=== PATIENT | female | born 1975 | race Caucasian/White ===

== ENCOUNTER 2018-11-14 22:19 | Emergency (ER) | payer MEDICAID ==
[~2018-11-14] VITALS: Ht 142.2 cm; Wt 61.2 kg
[~2018-11-14 22:19] MED LIST: PREN1TAB49
[2018-11-14 22:25] VITALS: Ht 142.2 cm; Wt 61.2 kg
[2018-11-15] MEDS ORDERED: SOD CHLORIDE 0.9% 1,000 ML IV ONE (01:00)
[2018-11-15] MEDS ORDERED: ACETAMINOPHEN 325 MG TAB PO ONE (01:00)
[2018-11-15] MEDS ORDERED: ACET325T33 PO (02:11)
[2018-11-15] MEDS ORDERED: ONDA4TAB14 PO (02:11)
[2018-11-15] MEDS ORDERED: CEPH-443 PO (02:11)
[2018-11-15 02:30] VITALS: BP 108/65; PULSE 104; RESP 20
--- NOTE | 2018-11-15 02:31 | ERD ---
ER Documentation Chief Complaint Chief Complaint HAs & fever since Saturday, last Ibuprofen 2030PM HPI 42-year-old female presents for headache and fever times 6 days. The headache is noted to be diffuse. She describes the pain as 9 out of 10. She states that the onset of symptoms was gradual. Patient states that her fever has been subjective. She took Motrin at home with only mild relief. She states that she has nausea however denies vomiting or diarrhea. She also denies cough or runny nose. She was seen at [facility] 2 days ago and was noted that she had a viral syndrome. Patient denies any confusion. She denies chest pain or shortness of breath. ROS All systems reviewed and are negative except as per history of present illness. Medications Home Meds Active Scripts Ondansetron (Ondansetron Odt) 4 Mg Tab.rapdis, 4 MG PO Q6H PRN for NAUSEA AND/OR VOMITING, #15 TAB Prov:YANIRA MOSLEY 11/15/18 Cephalexin* (Keflex*) 500 Mg Capsule, 500 MG PO TID for bacterial infection for 5 Days, #15 CAP Prov:MOSLEYYANIRA 11/15/18 Acetaminophen* (Tylenol*) 325 Mg Tablet, 2 TAB PO Q6 PRN for FEVER GREATER THAN 100.6, #30 TAB Prov:MOSLEYYANIRA 11/15/18 Reported Medications Vits W-Ca,Fe,Fa(<1MG) () 1 Tab Tablet 12/13/10 Allergies Allergies: Coded Allergies: No Known Allergies (Verified Allergy, Unknown, 01/10/07) PMhx/Soc Medical and Surgical Hx: pt denies Medical Hx History of Surgery: Yes (Hysterectomy) Anesthesia Reaction: No Hx Neurological Disorder: No Hx Respiratory Disorders: No Hx Cardiac Disorders: No Hx Psychiatric Problems: No Hx Miscellaneous Medical Probl: No Hx Alcohol Use: No Hx Substance Use: No Hx Tobacco Use: No Smoking Status: Never smoker Physical Exam Vitals Vital Signs Date Temp Pulse Resp B/P (MAP) Pulse Ox O2 O2 Flow FiO2 Time Delivery Rate 11/15/18 98.6 104 20 108/65 99 Room Air 02:30 (79) 11/15/18 99.6 00:57 11/14/18 101.9 113 20 107/68 97 22:25 (81) Physical Exam Const: No acute distress Head: Atraumatic, no temporal area tenderness to palpation Eyes: Normal Conjunctiva, pupils equal, round, reactive to light bilaterally ENT: Normal External Ears, bilateral tympanic membrane intact without erythema or bulging noted, Nose and Mouth. No tonsillar swelling or exudate noted Neck: Full range of motion. No meningismus, no bruits noted Resp: Clear to auscultation bilaterally Cardio: Regular rate and rhythm, no murmurs, bilateral radial and dorsalis pedis pulses intact Skin: No petechiae or rashes Ext: No cyanosis, or edema, 5 out of 5 muscular bilateral upper and lower extremities Neur: Awake and alert, bilateral upper and lower extremity sensation intact Psych: Normal Mood and Affect Results 24 hrs Current Medications Medications Dose Sig/Yayo Start Time Status Last (Trade) Ordered Route PRN Stop Time Admin Dose Reason Admin 650 mg ONCE ONCE 11/15/18 DC 11/15/18 Acetaminophen PO 01:00 11/15/18 00:57 (Tylenol 01:01 Tab) Sodium 1,000 ml @ Q1H ONCE 11/15/18 DC 11/15/18 Chloride 1,000 mls/hr IV 01:00 11/15/18 00:55 01:59 Procedures/MDM Medical Decision Making: Differential diagnosis includes but not limited to primary headache, subarachnoid hemorrhage, meningitis, temporal arteritis, glaucoma, hypertension, cerebral ischemia, carotid or vertebral arterial dissection, brain tumor. Patient appeared well on physical examination, nontoxic appearing. Given patient's age and no temporal area tenderness to palpation, low suspicion for temporal arteritis. Patient has no vision changes and pupils are reactive bilaterally, low suspicion for glaucoma. There is also no focal neurologic deficits to suggest a brain tumor. Patient has normal sensation and muscle strength, low suspicion for cerebral ischemia. Given the severity of the headache and history of fever, there is some suggestion for meningitis. Discussed with patient that a lumbar puncture would be the only way to rule out meningitis. Patient was hesitant about getting a lumbar puncture. Shared decision making: Discussed with patient that if she did not want a lumbar puncture, we could treat with antibiotics empirically however IV antibiotics would be the best way to treat a bacterial meningitis. Patient states that she would like to try antibiotics. Strict return precautions discussed with patient. Patient did present to the ER with a fever of 101.9 and tachycardia 113 In the ER patient given IV fluids and Tylenol Symptoms improved with treatment. Patient's fever and tachycardia improved. Patient given prescription for Keflex, Tylenol, Zofran Patient advised to follow up with PCP in 1-2 days. Patient advised to return to ED for new or worsening symptoms. Patient stable on discharge from the ED. Disclaimer: Inadvertent spelling and grammatical errors are likely due to EHR/dictation software use and do not reflect on the overall quality of patient care. Also, please note that the electronic time recorded on this note does not necessarily reflect the actual time of the patient encounter. Departure Diagnosis: Primary Impression: Fever Additional Impression: Headache Condition: Fair Patient Instructions: Self-Care for Headaches, Fever Control (Adult) Referrals: [facility] YOU HAVE RECEIVED A MEDICAL SCREENING EXAM AND THE RESULTS INDICATE THAT YOU DO NOT HAVE A CONDITION THAT REQUIRES URGENT TREATMENT IN THE EMERGENCY DEPARTMENT. FURTHER EVALUATION AND TREATMENT OF YOUR CONDITION CAN WAIT UNTIL YOU ARE SEEN IN YOUR DOCTORS OFFICE WITHIN THE NEXT 1-2 DAYS. IT IS YOUR RESPONSIBILITY TO MAKE AN APPOINTMENT FOR FOLOW-UP CARE. IF YOU HAVE A PRIMARY DOCTOR --you should call your primary doctor and schedule an appointment IF YOU DO NOT HAVE A PRIMARY DOCTOR YOU CAN CALL OUR PHYSICIAN REFERRAL HOTLINE AT IF YOU CAN NOT AFFORD TO SEE A PHYSICIAN YOU CAN CHOSE FROM THE FOLLOWING [facility] [address] [facility]. [facility] [address] [facility] [facility] [address] [facility] [facility] [address] [facility]. [facility] [address] [facility]. [facility]. [address] Additional Instructions: Llame al doctor MAANA y debra karime RYLEE PARA DENTRO DE 1-2 MAYES.Dgale a la secretaria que nosotros le instruimos hacer esta rylee.Avise o llame si talley condicin se empeora antes de la rylee. Regresa aqui si peor o no mejor. YANIRA MOSLEY DO Nov 15, 2018 02:31
== END 2018-11-15 02:31 | disposition home or self-care (01) ==
LOC: FTE 22:19
DX: R50.9 Fever, unspecified (principal)
CPT/HCPCS: 87400; J7030; Z7610; 96360